=== PATIENT | female | born 1950 | race Caucasian/White ===

== ENCOUNTER 2017-07-11 09:08 | Day surgery (SDC) | payer MEDICARE, BC ==
[2017-07-11] MEDS ORDERED: BUPIVACAINE/EPI 0.5% 10 ML SOL INFIL ONE (09:32)
[2017-07-11] MEDS ORDERED: PROPOFOL 10 MG/ML EMU IV ONE (09:45)
[2017-07-11] MEDS ORDERED: FENTANYL 100MCG/2ML SOL ONE (09:47)
[2017-07-11] MEDS ORDERED: KETOROLAC TROMETHAMINE 30 MG/ML SOL ONE (10:14)
[2017-07-11] MEDS: LIDOCAINE HCL 2% MPF SOL ONE ×2 (10:22→10:30)
[2017-07-11] MEDS: BUPIVACAINE HCL 0.5% MPF 10 ML SOL ONE ×2 (10:22→10:35)
[2017-07-11 11:19] VITALS: BP 143/93; PULSE 62; RESP 18; TEMP 97.4; O2SAT 92
== END 2017-07-11 11:58 | disposition home or self-care (01) | DRG 558 ==
LOC: SURG 09:08
PROVIDERS: ATTEND Orthopaedic Surgery
DX: M65.331 Trigger finger, right middle finger (principal)
CPT/HCPCS: J1885; J3010; A6402; J2704